=== PATIENT | female | born 1990 | race Caucasian/White ===

== ENCOUNTER 2017-09-16 08:47 | Emergency (ER) | payer MEDICARE, MEDICAID ==
[~2017-09-16] VITALS: Ht 152.4 cm; Wt 73.9 kg
[2017-09-16 09:14] VITALS: BP 120/82
== END 2017-09-16 10:37 | disposition home or self-care (01) ==
LOC: ED 10:30
DX: J02.9 Acute pharyngitis, unspecified (principal)
CPT/HCPCS: 99282

== ENCOUNTER 2017-09-19 07:35 | Inpatient (IN) | payer MEDICARE, MEDICAID ==
[~2017-09-19] VITALS: Ht 154.9 cm; Wt 80.0 kg
[2017-09-19] MEDS ORDERED: ONDANSETRON 2MG/ML, 2ML IVPush ONE (08:00)
[2017-09-19] MEDS ORDERED: SODIUM CHLORIDE 0.9% 1,000ML IVBOLUS ONE (08:00)
[2017-09-19] MEDS ORDERED: ACETAMINOPHEN 325 MG TABLET PO ONE (08:00)
[2017-09-19] MEDS ORDERED: SODIUM CHLORIDE FLUSH 10ML SYR IVF ONE (08:00)
[2017-09-19] MEDS ORDERED: ACETAMINOPHEN 325 MG TABLET ONE (08:40)
[2017-09-19] MEDS ORDERED: AZITHROMYCIN 500 MG TABLET ONE (08:40)
[2017-09-19] MEDS ORDERED: CEFTRIAXONE PMX 1GM/50ML 50 ML ONE (08:40)
[2017-09-19] MEDS ORDERED: ONDANSETRON 2MG/ML, 2ML ONE (08:40)
[2017-09-19] MEDS ORDERED: AZITHROMYCIN 250 MG TABLET ONE (08:42)
[2017-09-19 08:43] LABS: ANION GAP 8 mmol/L (5-15); CALCIUM 8.4 mg/dL (8.5-10.1); CHLORIDE 106 mmol/L (98-107); CREATININE 1.14 mg/dL (0.55-1.02)
[2017-09-19 08:56] LABS: MEAN CORPUSCULAR HEMOGLOBIN 34.1 pg (27.0-34.8); MEAN CORPUSCULAR HGB CONC 34.4 g/dL (32.4-35.8); MEAN CORPUSCULAR VOLUME 99.1 fL (80-100); MEAN PLATELET VOLUME 7.5 fL (7.4-10.4); PLATELET COUNT 329 x10^3/uL (130-400); RED BLOOD COUNT 3.96 x10^6/uL (3.82-5.3); RED CELL DISTRIBUTION WIDTH 15.6 % (9.6-15.2)
[2017-09-19 08:58] LABS: BASOPHILS # (AUTO) 0.03 x10^3/uL (0-0.1); BASOPHILS % (AUTO) 0 % (0-1); EOSINOPHILS # (AUTO) 0.01 x10^3/uL (0-0.4); EOSINOPHILS % (AUTO) 0 % (1-7); LYMPHOCYTES # (AUTO) 0.98 x10^3/uL (1-3.4); LYMPHOCYTES % (AUTO) 10 % (22-44); MD SCAN; MONOCYTES # (AUTO) 0.49 x10^3/uL (0.2-0.8); MONOCYTES % (AUTO) 5 % (2-9); NEUTROPHILS # (AUTO) 8.01 x10^3/uL (1.8-6.8); NEUTROPHILS % (AUTO) 84 % (42-75)
[2017-09-19] MEDS ORDERED: CEFTRIAXONE 1,000 MG in SODIUM CHLORIDE 0.9% 50 ML IVPB ONE (09:00)
[2017-09-19] MEDS ORDERED: AZITHROMYCIN 500 MG in SODIUM CHLORIDE 0.9% 250 ML IVPB ONE (09:00)
[2017-09-19 10:31] LABS: MICROSCOPIC INDICATED
[2017-09-19 10:40] LABS: CULTURE INDICATED? NO
[2017-09-19] MEDS ORDERED: ONDANSETRON 2MG/ML, 2ML IVPush PRN (11:00)
[2017-09-19] MEDS ORDERED: ACETAMINOPHEN 325 MG TABLET PO PRN (11:00)
[2017-09-19] MEDS ORDERED: DIPHENHYDRAMINE 25 MG CAPSULE PO ONE (11:30)
[2017-09-19] MEDS ORDERED: DEXAMETHASONE 4 MG/ML, 1ML IV ONE (12:00)
[2017-09-19] MEDS: GUAIFENESIN/DM 200-20MG, 10ML UDC PO PRN (13:10)
[2017-09-19] MEDS: SODIUM CHLORIDE 0.9% 1,000 ML IV SCH ×2 (13:13→23:42)
[2017-09-19 13:50] VITALS: BP 101/66
[2017-09-19 19:47] VITALS: BP 101/68
[2017-09-19] MEDS: ENOXAPARIN 40 MG/0.4 ML SQ SCH (20:02)
[2017-09-20 02:30] VITALS: BP 102/67
[2017-09-20 03:35] LABS: ALANINE AMINOTRANSFERASE 25 U/L (12-78); ALBUMIN 2.3 g/dL (3.4-5.0); ANION GAP 7 mmol/L (5-15); CALCIUM 7.3 mg/dL (8.5-10.1); CHLORIDE 110 mmol/L (98-107); CREATININE 0.65 mg/dL (0.55-1.02)
[2017-09-20 03:37] LABS: ALKALINE PHOSPHATASE 78 U/L (45-117); BILIRUBIN,TOTAL 0.3 mg/dL (0.2-1.0); TOTAL PROTEIN 6.7 g/dL (6.4-8.2)
[2017-09-20 04:18] LABS: BASOPHILS # (AUTO) 0.01 x10^3/uL (0-0.1); BASOPHILS % (AUTO) 0 % (0-1); EOSINOPHILS % (AUTO) 0 % (1-7); LYMPHOCYTES # (AUTO) 0.85 x10^3/uL (1-3.4); LYMPHOCYTES % (AUTO) 8 % (22-44); MD NO; MEAN CORPUSCULAR HEMOGLOBIN 34.4 pg (27.0-34.8); MEAN CORPUSCULAR HGB CONC 33.8 g/dL (32.4-35.8); MEAN CORPUSCULAR VOLUME 101.8 fL (80-100); MEAN PLATELET VOLUME 7.8 fL (7.4-10.4); MONOCYTES # (AUTO) 0.28 x10^3/uL (0.2-0.8); MONOCYTES % (AUTO) 3 % (2-9); NEUTROPHILS % (AUTO) 89 % (42-75); PLATELET COUNT 309 x10^3/uL (130-400); RED CELL DISTRIBUTION WIDTH 15.6 % (9.6-15.2)
[2017-09-20] MEDS: LEVOFLOXACIN/PMX 750MG/150ML 150 ML IV SCH (07:40)
[2017-09-20] MEDS: SODIUM CHLORIDE 0.9% 1,000 ML IV SCH ×2 (07:41→19:18)
[2017-09-20 07:50] VITALS: BP 102/67
[2017-09-20] MEDS: DIPHENHYDRAMINE 25 MG CAPSULE PO PRN (10:25)
[2017-09-20 10:27] VITALS: BP 96/63
[2017-09-20 14:37] VITALS: BP 98/65
[2017-09-20] MEDS: GUAIFENESIN/DM 200-20MG, 10ML UDC PO PRN (15:40)
[2017-09-20] MEDS: ENOXAPARIN 40 MG/0.4 ML SQ SCH (19:18)
[2017-09-20 21:02] VITALS: BP 109/72
[2017-09-21 03:18] VITALS: BP 102/70
[2017-09-21] MEDS: SODIUM CHLORIDE 0.9% 1,000 ML IV SCH ×2 (05:05→16:35)
[2017-09-21 08:05] VITALS: BP 92/55
[2017-09-21] MEDS: DIPHENHYDRAMINE 25 MG CAPSULE PO PRN (09:05)
[2017-09-21] MEDS: LEVOFLOXACIN/PMX 750MG/150ML 150 ML IV SCH (09:05)
[2017-09-21 12:48] VITALS: BP 102/59
[2017-09-21] MEDS: ENOXAPARIN 40 MG/0.4 ML SQ SCH (19:27)
[2017-09-21 19:51] VITALS: BP 100/67
[2017-09-22] MEDS: SODIUM CHLORIDE 0.9% 1,000 ML IV SCH (01:11)
[2017-09-22 04:00] VITALS: BP 100/73
[2017-09-22] MEDS: GUAIFENESIN/DM 200-20MG, 10ML UDC PO PRN (05:46)
[2017-09-22 08:00] VITALS: BP 100/67
[2017-09-22] MEDS: LEVOFLOXACIN 500 MG TABLET PO SCH (10:35)
[2017-09-22 13:53] VITALS: BP 94/52
[2017-09-22 19:19] VITALS: BP 103/69
[2017-09-22] MEDS: ENOXAPARIN 40 MG/0.4 ML SQ SCH (19:19)
[2017-09-23 04:10] VITALS: BP 90/58
[2017-09-23 08:39] VITALS: BP 91/61
[2017-09-23] MEDS: LEVOFLOXACIN 500 MG TABLET PO SCH (12:03)
[2017-09-23 12:49] VITALS: BP_SYST 91; BP_SYST 99; BP_DIAS 59; BP_DIAS 65
[2017-09-23 18:56] VITALS: BP 113/76
[2017-09-23] MEDS: ENOXAPARIN 40 MG/0.4 ML SQ SCH (19:30)
[2017-09-24 02:50] VITALS: BP 105/65
[2017-09-24 08:07] VITALS: BP_SYST 85; BP_SYST 95; BP_DIAS 58; BP_DIAS 62
[2017-09-24] MEDS: LEVOFLOXACIN 500 MG TABLET PO SCH (09:00)
[2017-09-24 09:31] LABS: CREATININE 0.94 mg/dL (0.55-1.02)
== END 2017-09-24 14:26 | disposition home or self-care (01) | DRG 871 ==
LOC: ED 08:58 → EDIP 10:21 → SUATTDRO 10:43 → 3NE 12:06
PROVIDERS: ADMIT Internal Medicine; ATTEND Internal Medicine
DX: A41.9 Sepsis, unspecified organism (principal); E43 Unspecified severe protein-calorie malnutrition; J96.01 Acute respiratory failure with hypoxia; J15.9 Unspecified bacterial pneumonia; Q90.9 Down syndrome, unspecified; J02.8 Acute pharyngitis due to other specified organisms; R65.20 Severe sepsis without septic shock; J06.9 Acute upper respiratory infection, unspecified; L50.9 Urticaria, unspecified; T36.1X5A Adverse effect of cephalosporins and other beta-lactam antibiotics, initial encounter; Y92.89 Other specified places as the place of occurrence of the external cause; Z68.33 Body mass index [BMI] 33.0-33.9, adult
CPT/HCPCS: 36415; 36600; 71045; 80048; 80053; 81001; 82040; 82565; 82803; 83605; 84145; 85025; 87040; 87081; 87880; 93306; 96365; 96375; 99285; J0456; J0696; J1100; J1650; J1956; J2405; J7030; J7050; Q0163